=== PATIENT | male | born 1990 | race Caucasian/White ===

== ENCOUNTER 2017-04-21 19:07 | Emergency (ER) | payer SELFPAY ==
[~2017-04-21] VITALS: Ht 193 cm; Wt 84.0 kg
[2017-04-21 20:24] LABS: BASOPHIL COUNT 0.1 K/uL (0-0.1); EOSINOPHIL (%) 0.3 % (0-5); EOSINOPHIL COUNT 0.1 K/uL (0-0.3); HEMATOCRIT 45.5 % (38.0-50.0); IMMATURE GRANULOCYTE (%) 0.8 % (0.0-0.7); IMMATURE GRANULOCYTE COUNT 0.2 K/uL; INSTRUMENT ABS NEUTROPHIL CT 16.9 K/uL; LYMPHOCYTE COUNT 1.4 K/uL (1.0-2.8); MCH 30.4 PG (29.0-34.0); MCHC 34.7 G/DL (30.0-36.0); MCV 87.7 FL (86-99); MEAN PLAT.VOLUME 11.5 uM^3 (9.0-12.4); MONOCYTE (%) 7.2 % (3-12); MONOCYTE COUNT 1.5 K/uL (0-0.8); NEUTROPHIL (%) 84.2 % (45-76); NEUTROPHIL COUNT 16.9 K/uL (1.8-6.4); PLATELET COUNT 243 K/uL (156-360); RBC DIS.WIDTH-CV 11.9 % (11.8-14.6); RBC DIS.WIDTH-SD 38.1 % (39-53); RED BLOOD COUNT 5.19 M/uL (4.00-5.50); WHITE BLOOD COUNT 20.1 K/uL (4.1-10.2)
[2017-04-21 20:32] LABS: CHLORIDE 101 mEq/L (99-109); POTASSIUM 4.8 mEq/L (3.7-5.4); SODIUM 137 mEq/L (136-147)
[2017-04-21 20:34] LABS: GLUCOSE 81 mg/dL (70-99)
[2017-04-21 20:35] LABS: ANION GAP 13 MEQ/L (2-14)
[2017-04-21 20:38] LABS: GFR ESTIMATE (CALCULATED) 48 mL/min/; UREA NITROGEN (BUN) 24 mg/dL (9-23)
[2017-04-21 20:52] LABS: TROP-I INTERPRETATION NEGATIVE; TROPONIN-I < 0.01 ng/mL (0.0-0.30)
[2017-04-21 22:52] LABS: BILIRUBIN NEGATIVE; BLOOD NEGATIVE; COLOR YELLOW ((YELLOW)); GLUCOSE (STRIP) NEGATIVE; KETONES 80; LEUKOCYTES NEGATIVE; NITRITE NEGATIVE; PROTEIN (STRIP) 30; SPECIFIC GRAVITY 1.018 (1.000-1.030); UROBILINOGEN 0.2 MG/DL (0.2-1.0)
[2017-04-21 23:02] LABS: ADD MIUA? NO
[2017-04-21 23:19] VITALS: BP 129/76
== END 2017-04-21 23:24 | disposition home or self-care (01) ==
LOC: EME 19:07
PROVIDERS: Physician Assistant
DX: R55 Syncope and collapse (principal); E86.0 Dehydration; R51 Headache; R11.0 Nausea; F17.200 Nicotine dependence, unspecified, uncomplicated
CPT/HCPCS: 80048; 81003; 84484; 85025; 93005; 99281; 99284; J0780; J1885; J2405; J7030